=== PATIENT | male | born 1960 | race Caucasian/White ===

== ENCOUNTER 2022-07-15 21:53 | Emergency (ER) | payer MEDICAID ==
[~2022-07-15] VITALS: Ht 182.9 cm; Wt 140.6 kg
[2022-07-15] MEDS ORDERED: NACL 0.9% 1,000 ML IV ONE (22:30)
[2022-07-15] MEDS ORDERED: VANCOMYCIN HCL 1,000 MG in NS 250 ML IV ONE (22:30)
[2022-07-15 22:31] VITALS: BP_SYST 134
--- NOTE | 2022-07-15 22:38 | NUR ---
Lab at bedside.
--- NOTE | 2022-07-15 22:39 | NUR ---
Patient to ER bed 06 to gown for evaluation. Side rails up. Report given to Inessa SPANN.
--- NOTE | 2022-07-15 22:45 | NUR ---
Patient presents to ED from home with c/o weeping ulcer to the RLE. Patient has redness and warmth noted to the RLE. Patient reports ulcer x12 years. Patient states "Nely had an issue with this leg for a long time. It was getting better, but then today I noticed it got worse. I came in to make sure my leg gets better." ER MD Mendoza notified.
--- NOTE | 2022-07-15 22:50 | NUR ---
# 22 gauge angiocath placed to Left AC. Use of asceptic technique. Opsite placed over site. Blood return noted. Flushed with 10 cc of normal saline. No evidence of infiltration noted. Patient tolerated well.
[2022-07-15 22:56] LABS: HEMATOCRIT 42.1 % (36-54); MEAN CORPUSCULAR HEMOGLOBIN 30 pg (27-31)
[2022-07-15 23:02] LABS: BASOPHILS # (AUTO) 0.1 K/uL (0.0-0.2); BASOPHILS % (AUTO) 0.9 % (0.0-2.0); EOSINOPHILS # (AUTO) 0.2 K/uL (0.0-0.4); EOSINOPHILS % (AUTO) 2.4 % (0.0-4.0); HEMOGLOBIN 13.8 g/dL (14.0-18.0); LYMPHOCYTES # (AUTO) 2.4 K/uL (1.0-5.5); LYMPHOCYTES % (AUTO) 25.9 % (20.5-51.5); MEAN CORPUSCULAR HGB CONC 33 % (32-36); MEAN CORPUSCULAR VOLUME 92 fL (79.0-98.0); MONOCYTES # (AUTO) 0.4 K/uL (0.0-1.0); MONOCYTES % (AUTO) 4.3 % (1.7-9.3); NEUTROPHILS # (AUTO) 6.2 K/uL (1.8-7.7); NEUTROPHILS % (AUTO) 66.5 % (40.0-70.0); PLATELET COUNT (AUTO) 303 K/uL (130-430); RED BLOOD CELL COUNT(AUTO) 4.56 MIL/uL (4.2-6.2); RED CELL DISTRIBUTION WIDTH 15.6 % (9.0-15.0); WHITE BLOOD COUNT (AUTO) 9.4 K/uL (4.8-10.8)
[2022-07-15] MEDS ORDERED: VANCOMYCIN HCL 1000 MG/VIAL IV ONE (23:06)
[2022-07-15 23:31] LABS: CALCIUM 8.7 mg/dL (8.4-11.0); CREATININE 1.27 mg/dL (0.55-1.30)
[2022-07-15 23:36] LABS: ALBUMIN 3.5 g/dL (3.4-4.8); TOTAL BILIRUBIN 0.7 mg/dL (0.0-1.0)
--- NOTE | 2022-07-16 | NUR ---
Patient refusing wound care at this time. Patient states "No I'm fine right now. Im used to my leg like this. Nely had this for 12 years."
--- NOTE | 2022-07-16 00:44 | NUR ---
covid swab done and sent to lab
[2022-07-16 01:00] VITALS: BP_SYST 134
--- NOTE | 2022-07-16 01:20 | NUR ---
Patient sleeping in bed with side rails raised. Nad noted at this time.
[2022-07-16] MEDS ORDERED: LOSA50TA3 PO (01:46)
[2022-07-16] MEDS ORDERED: HYDR-3927 PO (01:46)
[2022-07-16] MEDS ORDERED: GABA800T PO (01:46)
[2022-07-16] MEDS ORDERED: LEVO125T PO (01:46)
[2022-07-16] MEDS ORDERED: KETOROLAC TROMETHAMINE 30 MG VIAL IVP ONE (02:00)
--- NOTE | 2022-07-16 02:50 | NUR ---
Patient woke up and came to nursing station in a hostile manner and patient yelling at staff. Patient states "I want some water, some food, and I want to go to the bathroom. Nobody is here getting me things that I want. Wheres the bathroom? You guys took a bunch of blood from me, like a pint of blood." Patient went back to room still yelling at staff. Patient was offered ordered torodol pain medication at this time. Patient yelling "What is this the equivalent of aspirin?!" Patient then lunged at nurse and continued yelling "Because I was sleeping earlier I didnt get pain medication? Does that sound normal to you?" Patient was asked if he would allow pain medication to be given to him at this time. Patient ignored the question and continued yelling at staff. Patient stating "It doesnt matter that I was sleeping, you should of given me the pain medicaiton even if I was sleeping. I want food, I want water, wheres the water fountain? I can get it myself. I'll get the water myself. I asked you for water and you gave me 2 cups. I want more water." Patient was told that he can ask for water and food and it will be provided for but that he needs to request items. Patient then stated "So I have to ask for food and water?! No! You should just give it to me. I shouldnt have to ask for anything." Security called at this time due to patient's hostile manner towards medical staff.
--- NOTE | 2022-07-16 03:20 | NUR ---
Patient yelling, aggressive, and is continuing to be hostile towards security at bedside.
--- NOTE | 2022-07-16 03:50 | NUR ---
Patient stating he wants wound care done at this time. packaging technician is currently at bedside providing wound care; pt tolerating well.
--- NOTE | 2022-07-16 03:55 | NUR ---
ER MD Mendoza at bedside clarifying hospital admission transfer to [facility] in [place], [place]. Due to patient's own medical insurance, he is being admitted to [facility]. Patient states "Well if that's the case then I might as well just go home then. Because my doctor just told me that he wanted me to get IV antibiotics and I already got that, so I can just go home. We can forget all about transferring me then. After he (solder technician) is done cleaning my leg I might as well go home. I got my car here in the parking lot anyway."
--- NOTE | 2022-07-16 04:03 | NUR ---
Torrey chamorro received call from [facility] regarding patient transfer for hospital admission. Patient was asked again if he would like to be admitted to hospital or if he still wants to leave AMA. Patient states "I'll probably go home after this." Patient was asked to give a definite answer if he would like to be transferred for admission or if he would like to go home AMA. Patient states "I was told I was not going to have another IV right now so yes I would like to go home. I'm only here for the IV." At this time [facility] was advised of patient's wishes to go home after wound care. ER MD Mendoza notified.
--- NOTE | 2022-07-16 04:16 | NUR ---
Patient does not wish to proceed with medical care recommended by Dr Mendoza. Patient given information related to possible complications, up to and including , which could occur as a result of leaving hospital at this time. Patient verbalizes understanding of risks involved leaving against medical advice. Patient refusing to sign AMA form at this time. ER MD Mendoza notified and spoke with patient. Patient still refusing to sign at this time.
== END 2022-07-16 04:16 | disposition left against medical advice (07) ==
LOC: SED 21:53
DX: L03.115 Cellulitis of right lower limb (principal); R22.41 Localized swelling, mass and lump, right lower limb; Z79.899 Other long term (current) drug therapy; Z20.822 Contact with and (suspected) exposure to COVID-19
CPT/HCPCS: 99284; 96365; 96366; 87426; 80053; 85025; 87040; 36415; 73590; 83605; 96375; J3370; J1885

== ENCOUNTER 2022-12-26 13:36 | Emergency (ER) | payer MEDICAID ==
[~2022-12-26] VITALS: Ht 182.9 cm; Wt 136.1 kg
[~2022-12-26 13:36] MED LIST: GABA800T PO; HYDR-3927 PO; LEVO125T PO; LOSA50TA3 PO
[2022-12-26 14:02] VITALS: BP_SYST 182
[2022-12-26] MEDS ORDERED: KETOROLAC TROMETHAMINE 60 MG/2 ML VIAL IM ONE (15:00)
--- NOTE | 2022-12-26 15:00 | NUR ---
RECEIVED PT FROM [facility]. PT BIB SELF WITH C/O OF EPIGASTRIC PAIN 7/10 BEGINING LAST NIGHT ABOUT 1AM. PT IS AAOX4. NORMAL S1S2 NOTED. DENIES N/V/D/C. DISTAL PULSES NORMAL. PT HAS BLE TRACE EDEMA WITH REDNESS AND DRYNESS. SKIN CDI, WARM. SIDERAILS UP X2.
--- NOTE | 2022-12-26 15:05 | NUR ---
DR. ORTA AT BEDSIDE TO ASSESS PT.
--- NOTE | 2022-12-26 15:50 | NUR ---
TORADOL IM GIVEN TO RIGHT DELTOID. SITE COVERED WITH BANDAID.
[2022-12-26 15:55] LABS: BASOPHILS # (AUTO) 0.1 K/uL (0.0-0.2); BASOPHILS % (AUTO) 0.6 % (0.0-2.0); EOSINOPHILS # (AUTO) 0.1 K/uL (0.0-0.4); HEMATOCRIT 47.5 % (36-54); LYMPHOCYTES # (AUTO) 2.4 K/uL (1.0-5.5); LYMPHOCYTES % (AUTO) 20.9 % (20.5-51.5); MEAN CORPUSCULAR HEMOGLOBIN 33 pg (27-31); MEAN CORPUSCULAR HGB CONC 34 % (32-36); MEAN CORPUSCULAR VOLUME 97 fL (79.0-98.0); MONOCYTES # (AUTO) 0.6 K/uL (0.0-1.0); MONOCYTES % (AUTO) 4.9 % (1.7-9.3); NEUTROPHILS # (AUTO) 8.3 K/uL (1.8-7.7); NEUTROPHILS % (AUTO) 72.6 % (40.0-70.0); PLATELET COUNT (AUTO) 238 K/uL (130-430); RED BLOOD CELL COUNT(AUTO) 4.89 MIL/uL (4.2-6.2); RED CELL DISTRIBUTION WIDTH 14.4 % (9.0-15.0); WHITE BLOOD COUNT (AUTO) 11.4 K/uL (4.8-10.8)
[2022-12-26 16:13] LABS: ANION GAP 4 (5-15); CALCIUM 8.7 mg/dL (8.4-11.0); CHLORIDE 103 mmol/L (98-107); CREATININE 0.97 mg/dL (0.55-1.30); GFR AFRICAN AMERICAN 101 mL/min (>90); GLUCOSE 100 mg/dL (70-99); UREA NITROGEN, BLOOD 10 mg/dL (8-21)
[2022-12-26 16:25] LABS: ALANINE AMINOTRANSFERASE 31 U/L (12-78); ALBUMIN 3.6 g/dL (3.4-4.8); AMYLASE 70 U/L (0-100); ASPARTATE AMINOTRANSFERASE 22 U/L (10-37); C-REACTIVE PROTEIN QUANT 0.4 mg/dL (0-0.5); LACTATE DEHYDROGENASE 159 U/L (85-227); LIPASE 110 U/L (73-393); TOTAL BILIRUBIN 1.3 mg/dL (0.0-1.0)
[2022-12-26 16:48] LABS: ACETONE, SERUM NEGATIVE (NEGATIVE)
--- NOTE | 2022-12-26 17:41 | NUR ---
URINE OBTAINE AND TAKEN TO LAB.
[2022-12-26 18:03] LABS: BILIRUBIN,URINE NEGATIVE (NEGATIVE); BLOOD, URINE NEGATIVE (NEGATIVE); CLARITY/URINE CLEAR (CLEAR); COLOR,URINE YELLOW (YELLOW); GLUCOSE,URINE NEGATIVE (NEGATIVE); KETONES,URINE NEGATIVE (NEGATIVE); LEUKOCYTE ESTERASE ,URINE NEGATIVE (NEGATIVE); NITRITE, URINE NEGATIVE (NEGATIVE); PROTEIN URINE NEGATIVE (NEGATIVE)
--- NOTE | 2022-12-26 19:09 | NUR ---
DR. LAFLEUR AT BEDSIDE TO ASSESS PT.
[2022-12-26] MEDS ORDERED: ONDANSETRON HCL 4 MG/2 ML VIAL IVP ONE (19:30)
[2022-12-26] MEDS: MORPHINE 4 MG INJ. 4 MG/ML VIAL IVP ONE ×2 (19:37→20:29)
--- NOTE | 2022-12-26 19:40 | NUR ---
pt doesnt have iv attempted x 2 and unsucessful. md is aware. IM morphine pain shot ordered
[2022-12-26] MEDS ORDERED: ONDANSETRON 4 MG ODT TAB PO ONE (20:00)
[2022-12-26] MEDS ORDERED: MORPHINE 4 MG INJ. 4 MG/ML VIAL IM ONE (20:00)
[2022-12-26] MEDS ORDERED: MORPHINE 2 MG/ML INJ. SYRINGE ONE (20:04)
--- NOTE | 2022-12-26 20:35 | NUR ---
PATIENT HAS ALLIED INSURANCE AWAITING FOR UPPER AND BOTTOM LACER HAND FOR POSSIBLE TRANSER MED SURG BED DX ACUTE CHOLECYSTITIS STABLE
--- NOTE | 2022-12-26 21:07 | NUR ---
FROM ALLIED SPEAKING TO DR LAFLEUR
[2022-12-26] MEDS ORDERED: metroNIDAZOLE 500 mg/NS 100 ML IV ONE (21:15)
--- NOTE | 2022-12-27 00:32 | NUR ---
spoke to Michelle, manager child from [facility] for update on transfer. [phone] Michelle will call back within the hour to update on bed assignment
[2022-12-27] MEDS ORDERED: CEPH-548 PO ×2 (00:54)
[2022-12-27] MEDS ORDERED: TAMS-11 PO ×2 (00:54)
[2022-12-27] MEDS ORDERED: OXYC-128 PO ×2 (00:54)
[2022-12-27] MEDS ORDERED: ONDA-8 TL ×2 (00:54)
--- NOTE | 2022-12-27 01:01 | NUR ---
Patient is agitated in bed requesting to speak to charge nurse. Attempted to address patient's concerns. Patient states that he does not want to go to [facility] because he does not have his belongings and wants to know if his condition is life threatening and can wait a few days and just follow with PMD. Informed patient that Dr. Early has updated him on the results and would like patient to be admitted to the hospital but due to insurance patient will be transferred to [facility]. Informed patient that this RN just spoke to case management to follow up and still awaiting bed from [place]. Patient continues to stating his family does not know where he is, he does not have clothes, he has 20 [place] fish to feed, he didn't feed the dog. This RN advised patient to call family since he has his cell phone. Patient states he will call his daughter and then decide whether he will get transferred.
--- NOTE | 2022-12-27 01:10 | NUR ---
Patient ambulated with steady gait to nurse's station stating he does not want to be transferred to [place]. Patient states "since I am going to be waiting here for a couple hours, can I go home and take care of some things and come back." Patient was informed that patient would have to sign out against medical advice . Patient began to speak loudly and yell at Dr. Early stating that you have not seen me or talked to me regarding my results. You just want to ship me off to [place]. Dr. Early informed patient that he can sign out against medical advice. Patient states that he will not sign out against medical advice and would like to leave. Patient is becoming agressive, demanding and yelling at .
[2022-12-27 01:31] VITALS: BP_SYST 128
== END 2022-12-27 01:36 | disposition left against medical advice (07) ==
LOC: SED 13:36
DX: K81.0 Acute cholecystitis (principal); F43.9 Reaction to severe stress, unspecified; R14.0 Abdominal distension (gaseous); R10.13 Epigastric pain; I10 Essential (primary) hypertension; Z88.0 Allergy status to penicillin; Z91.041 Radiographic dye allergy status; Z79.899 Other long term (current) drug therapy; Z20.822 Contact with and (suspected) exposure to COVID-19
CPT/HCPCS: 99285; 74176; 96365; 76705; 96375; 87426; 80053; 82009; 82150; 83615; 83690; 85025; 86140; 84484; 36415; 76376; 96368; 96372; 83605; 81003; Q0162; J1885; J1956; J3490; J2405; J2270 ×2